=== PATIENT | female | born 1980 | race Caucasian/White ===

== ENCOUNTER 2021-01-24 11:00 | Outpatient (CLI) | payer OTHER | END 2021-01-24 23:59 | disposition home or self-care (01) | LOC: LAB.S 11:00 | PROVIDERS: ATTEND Physician Assistant Medical | DX: R30.0 Dysuria (principal) | CPT/HCPCS: 87086; 87181 ==

== ENCOUNTER 2021-02-02 15:10 | Outpatient (CLI) | payer OTHER ==
--- NOTE | 2021-02-03 14:34 | Mammography Report ---
BILATERAL DIGITAL SCREENING MAMMOGRAM 3D/2D WITH EXAGGERATED CC: 02/02/2021 CLINICAL: Family history of breast cancer. Baseline exam. No prior exams were available for comparison. The tissue of both breasts is heterogeneously dense. T his may lower the sensitivity of mammography. No significant masses, calcifications, or other findings are seen in either breast. IMPRESSION: NEGATIVE There is no mammographic evidence of malignancy. A 1 year screening mammogram is recommended. This exam was interpreted at Station ID: [id number]. NOTE: For mammograms, a report in lay terms will be sent to the patient. Approximately 15% of breast malignancies will not be visualized mammographically. In the management of a palpable breast mass, a negative mammogram must not discourage biopsy of a clinically suspicious lesion. Electronically Signed By: Homer Goldberg M.D. ddp/cici:02/02/2021 16:34:17 ACR BI-RADS Category 1: Negative 3341F PARENCHYMAL PATTERN: (D) - The breast(s) demonstrate(s) heterogeneously dense fibroglandular kayley arita. BI-RADS CATEGORY: (1) - 1 RECOMMENDATION: (ANNUAL) - Recommend routine annual screening mammography. [id number] 1 year screening LATERALITY: (B)
== END 2021-02-02 15:11 | disposition home or self-care (01) ==
LOC: DI.S 15:10
DX: Z12.31 Encounter for screening mammogram for malignant neoplasm of breast (principal); Z80.3 Family history of malignant neoplasm of breast

== ENCOUNTER 2021-09-18 10:21 | Emergency (ER) | payer OTHER ==
[2021-09-18] MEDS ORDERED: ONDANSETRON ODT 4 MG TABLET TL STA (10:40)
[2021-09-18] MEDS ORDERED: ACETAMINOPHEN 325 MG TABLET PO STA (10:42)
[2021-09-18 10:49] LABS: BASOPHILS # (AUTO) 0.1 10^3/uL (0.0-0.1); BASOPHILS % (AUTO) 0.4 %; EOSINOPHILS % (AUTO) 0.2 %; HGB - HEMOGLOBIN 13.1 g/dL (12.0-16.0); LYMPHOCYTES # (AUTO) 0.9 10^3/uL (1.5-3.5); LYMPHOCYTES % (AUTO) 7.5 %; MEAN CORPUSCULAR HEMOGLOBIN 31.5 pg (27.0-31.0); MEAN CORPUSCULAR HGB CONC 35.4 g/dL (32.0-36.0); MEAN CORPUSCULAR VOLUME 88.9 fL (81.0-99.0); MEAN PLATELET VOLUME 10.1 fL (7.9-10.8); MONOCYTES # (AUTO) 1.2 10^3/uL (0.0-1.0); MONOCYTES % (AUTO) 10.2 %; NEUTROPHILS # (AUTO) 9.5 10^3/uL (1.5-6.6); NEUTROPHILS % (AUTO) 81.1 %; PLT - PLATELET COUNT 225 10^3/uL (130-450); RED BLOOD COUNT 4.16 10^6/uL (4.20-5.40); RED CELL DISTRIBUTION WIDTH 13.7 % (12.0-15.0); WHITE BLOOD COUNT 11.7 x10^3/uL (4.8-10.8)
[2021-09-18 11:09] LABS: ALBUMIN/GLOBULIN RATIO 0.9 (1.0-2.2); ALKALINE PHOSPHATASE 40 IU/L (42-121); ALT ALANINE AMINOTRANSFERASE 24 IU/L (10-60); AST ASPARTATE AMINOTRANSFERASE 26 IU/L (10-42); BILIRUBIN,TOTAL 0.4 mg/dL (0.2-1.0); BUN - BLOOD UREA NITROGEN < 5 mg/dL (6-20); CALCIUM 8.9 mg/dL (8.5-10.3); CARBON DIOXIDE - CO2 26 mmol/L (21-32); CHLORIDE 92 mmol/L (101-111); CREATININE 0.8 mg/dL (0.4-1.0); GFR - MDRD 79 (>89); GLUCOSE 157 mg/dL (70-100); LIPASE 26 U/L (22-51); POTASSIUM 3.2 mmol/L (3.5-5.0); SODIUM 129 mmol/L (135-145); TOTAL PROTEIN 8.3 g/dL (6.7-8.2)
[2021-09-18] MEDS ORDERED: AZITHROMYCIN INJ 500 MG in SODIUM CHLORIDE 0.9% 250 ML IV STA (11:15)
[2021-09-18] MEDS ORDERED: SODIUM CHLORIDE 0.9% 1,000 ML IV STA (11:15)
[2021-09-18] MEDS ORDERED: cefTRIAXone 1 GM in SODIUM CHLORIDE 0.9% MINIBAG 100 ML IV STA (11:15)
--- NOTE | 2021-09-18 11:19 | ED Physician Documentation ---
PD HPI URI - Stated complaint Stated Complaint: FEVER/VOMITING - Chief complaint Chief Complaint: Fever - History obtained from History obtained from: Patient, Friend - History of Present Illness Timing - onset: How many days ago (5) Timing duration: Days (5) Timing details: Gradual onset, Still present Associated symptoms: Fever, Chills, Sweats, Nasal congestion, Rhinorrhea, Dry cough, NVD, Other (aches and chills) Contributing factors: No: Sick contact, Immunocompromised, Unimmunized Improves by: Rest Worsened by: Activity Similar symptoms before: Has not had sx before Recently seen: Not recently seen - Additional information Additional information: Previously well 41-year-old female has developed a cough congestion and fever with aches and pains. She is immunized against COVID and she has been boosted. She did not get Covid this year. She has taken a home test the day she developed symptoms. This was negative 5 days ago. She has continued to have cough and aches and fever. She has nausea and vomiting with this and has not been able to hold down tylenol. Review of Systems Constitutional: reports: Fever, Chills, Myalgias, Fatigue, Sweats Eyes: denies: Decreased vision, Photophobia Ears: denies: Ear pain Nose: reports: Rhinorrhea / runny nose, Congestion Throat: denies: Sore throat Cardiac: denies: Chest pain / pressure, Palpitations Respiratory: reports: Cough. denies: Dyspnea GI: reports: Nausea, Vomiting. denies: Constipation, Diarrhea : denies: Dysuria, Frequency Skin: denies: Rash Musculoskeletal: denies: Neck pain, Back pain, Extremity pain Neurologic: denies: Generalized weakness, Focal weakness, Numbness PD PAST MEDICAL HISTORY - Present Medications Home Medications: Ambulatory Orders Medication Instructions Recorded Confirmed Amox/Clav 875/125 [Augmentin] 1 each PO Q12H #20 tablet 09/18/21 Azithromycin [Zithromax] 250 mg PO DAILY #4 tablet 09/18/21 Ondansetron Odt [Zofran] 4 mg TL Q6H PRN #10 tablet 09/18/21 - Allergies Allergies/Adverse Reactions: Allergies Allergy/AdvReac Type Severity Reaction Status Date / Time cephalexin [From Keflex] Allergy Respiratory Verified 09/18/21 10:31 PD ED PE NORMAL - Vitals Vital signs reviewed: Yes (febrile and tachy) - General General: Alert and oriented X 3, No acute distress, Well developed/nourished - HEENT HEENT: Atraumatic, PERRL, EOMI, Pharynx benign, Dentition benign, Other (cerumen in left right is clear. ) - Neck Neck: Supple, no meningeal sign, No bony TTP - Cardiac Cardiac: RRR, No murmur - Respiratory Respiratory: No respiratory distress, Other (rhonhci and rales in the right base less the left. ) - Abdomen Abdomen: Soft, Non tender - Back Back: No CVA TTP, No spinal TTP - Derm Derm: Normal color, Warm and dry, No rash - Extremities Extremities: No deformity, No edema - Neuro Neuro: Alert and oriented X 3, grinder needle tip 2-12 intact, No motor deficit, No sensory deficit, Normal speech Eye Opening: Spontaneous Motor: Obeys Commands Verbal: Oriented GCS Score: 15 - Psych Psych: Normal mood, Normal affect Results - Vitals Vitals: Vital Signs - 24 hr 09/18/21 09/18/21 09/18/21 10:26 12:24 13:00 Temperature 39.4 C H 37.7 C 37.5 C Heart Rate 114 H 99 94 Respiratory 20 14 14 Rate Blood Pressure 126/80 114/67 103/66 O2 Saturation 98 96 97 Oxygen O2 Source Room air - Labs Labs: Laboratory Tests 09/18/21 09/18/21 09/18/21 10:33 10:33 11:22 WBC 11.7 H RBC 4.16 L Hgb 13.1 Hct 37.0 MCV 88.9 MCH 31.5 H MCHC 35.4 RDW 13.7 Plt Count 225 MPV 10.1 Neut # (Auto) 9.5 H Lymph # (Auto) 0.9 L Vilas # (Auto) 1.2 H Eos # (Auto) 0.0 Baso # (Auto) 0.1 Absolute Nucleated RBC 0.00 Nucleated RBC % 0.0 Sodium 129 L Potassium 3.2 L Chloride 92 L Carbon Dioxide 26 Anion Gap 11.0 BUN < 5 L Creatinine 0.8 Estimated GFR (MDRD) 79 L Glucose 157 H Lactic Acid Calcium 8.9 Total Bilirubin 0.4 AST 26 ALT 24 Alkaline Phosphatase 40 L Total Protein 8.3 H Albumin 4.0 Globulin 4.3 H Albumin/Globulin Ratio 0.9 L Lipase 26 Urine Color YELLOW Urine Clarity CLEAR Urine pH 6.5 Ur Specific [place] <=1.005 Urine Protein NEGATIVE Urine Glucose (UA) NEGATIVE Urine Ketones NEGATIVE Urine Occult Blood SMALL H Urine Nitrite NEGATIVE Urine Bilirubin NEGATIVE Urine Urobilinogen 1 (NORMAL) Ur Leukocyte Esterase NEGATIVE Urine RBC 0-5 Urine WBC 0-3 Ur Squamous Epith Cells FEW Squamous Urine Bacteria Rare Ur Microscopic Review INDICATED Urine Culture Comments NOT INDICATED Urine HCG, Qual NEGATIVE Nasal Adenovirus (PCR) Nasal B. parapertussis DNA (PCR) Nasal Coronavir 229E PCR Nasal Coronavir HKU1 PCR Nasal Coronavir NL63 PCR Nasal Coronavir OC43 PCR Nasal Enterovir/Rhinovir PCR Nasal Influenza B PCR Nasal Influenza A PCR Nasal Parainfluen 1 PCR Nasal Parainfluen 2 PCR Nasal Parainfluen 3 PCR Nasal Parainfluen 4 PCR Nasal RSV (PCR) Nasal B.pertussis DNA PCR Nasal C.pneumoniae (PCR) John Human Metapneumo PCR Nasal M.pneumoniae (PCR) Nasal SARS-CoV-2 (PCR) 09/18/21 09/18/21 11:22 11:32 WBC RBC Hgb Hct MCV MCH MCHC RDW Plt Count MPV Neut # (Auto) Lymph # (Auto) Vil[place] # (Auto) Eos # (Auto) Baso # (Auto) Absolute Nucleated RBC Nucleated RBC % Sodium Potassium Chloride Carbon Dioxide Anion Gap BUN Creatinine Estimated GFR (MDRD) Glucose Lactic Acid 1.5 Calcium Total Bilirubin AST ALT Alkaline Phosphatase Total Protein Albumin Globulin Albumin/Globulin Ratio Lipase Urine Color Urine Clarity Urine pH Ur Specific [place] Urine Protein Urine Glucose (UA) Urine Ketones Urine Occult Blood Urine Nitrite Urine Bilirubin Urine Urobilinogen Ur Leukocyte Esterase Urine RBC Urine WBC Ur Squamous Epith Cells Urine Bacteria Ur Microscopic Review Urine Culture Comments Urine HCG, Qual Nasal Adenovirus (PCR) NOT DETECTED Nasal B. parapertussis DNA (PCR) NOT DETECTED Nasal Coronavir 229E PCR NOT DETECTED Nasal Coronavir HKU1 PCR NOT DETECTED Nasal Coronavir NL63 PCR NOT DETECTED Nasal Coronavir OC43 PCR NOT DETECTED Nasal Enterovir/Rhinovir PCR NOT DETECTED Nasal Influenza B PCR NOT DETECTED Nasal Influenza A PCR NOT DETECTED Nasal Parainfluen 1 PCR NOT DETECTED Nasal Parainfluen 2 PCR NOT DETECTED Nasal Parainfluen 3 PCR NOT DETECTED Nasal Parainfluen 4 PCR NOT DETECTED Nasal RSV (PCR) NOT DETECTED Nasal B.pertussis DNA PCR NOT DETECTED Nasal C.pneumoniae (PCR) NOT DETECTED John Human Metapneumo PCR NOT DETECTED Nasal M.pneumoniae (PCR) NOT DETECTED Nasal SARS-CoV-2 (PCR) NOT DETECTED - Rads (name of study) chest Radiology: Prelim report reviewed (Impression: Slight increased right basilar coarsening, even accounting for mild rotated positioning. Atelectasis/dependent change versus developing pneumonia cannot be excluded.), EMP read indepedently, See rad report PD MEDICAL DECISION MAKING - ED course Complexity details: reviewed results, re-evaluated patient, considered dif ferential, d/w patient ED course: 41-year-old female with cough congestion and fever has a negative Covid test she has an infiltrate on her chest x-ray and she is treated for community-acquired pneumonia. She is administered Rocephin and azithromycin intravenously. Departure - Departure Disposition: 01 Home, Self Care Clinical Impression: Pneumonia Qualifiers: Pneumonia type: due to unspecified organism Laterality: right Lung location: lower lobe of lung Qualified Code(s): J18.9 - Pneumonia, unspecified organism Condition: Stable Instructions: ED Pneumonia Adult Follow-Up: JOHN Goodrich [Provider Group] Prescriptions: Amox/Clav 875/125 [Augmentin] 1 each PO Q12H #20 tablet Azithromycin [Zithromax] 250 mg PO DAILY #4 tablet Ondansetron Odt [Zofran] 4 mg TL Q6H PRN #10 tablet PRN Reason: Nausea / Vomiting Comments: Marli, today it looks like you have community-acquired pneumonia in your right lower lung. The expectation with this is daily improvement with the oral antibiotics and hydration. I have provided prescription for antibiotics that are E scribed to [facility] in [place]. In addition I have prescribed some Zofran for nausea in case this gets to be an issue again. Stay hydrated and slow down your work treat a fever with Tylenol and expect improvement day by day. If you have worsening we are here at 3 O'clock in the morning Discharge Date/Time: 09/18/21 13:32
--- NOTE | 2021-09-18 11:34 | XRAY Report ---
PROCEDURE: Chest 1 View X-Ray INDICATIONS: cough TECHNIQUE: One view of the chest was acquired. COMPARISON: None FINDINGS: Surgical changes and devices: None. Lungs and pleura: The patient is rotated, there is slight increased coarsening within the right base. Mediastinum: Mediastinal contours appear normal. Heart size is normal. Bones and chest wall: No suspicious bony lesions. Overlying soft tissues appear unremarkable. IMPRESSION: Slight increased right basilar coarsening, even accounting for mildly rotated positioning. Atelectasi s/dependent change versus developing pneumonia cannot be excluded. Reviewed by: Sydnie Camp MD on 09/18/2021 11:33 AM PDT Approved by: Sydnie Camp MD on 09/18/2021 11:33 AM PDT Station ID: [id number]
[2021-09-18 11:37] LABS: BILIRUBIN,URINE NEGATIVE (NEGATIVE); GLUCOSE, URINE (UA) NEGATIVE (NEGATIVE); KETONES,URINE (UA) NEGATIVE (NEGATIVE); LEUKOCYTE ESTERASE, URINE NEGATIVE (NEGATIVE); NITRITE,URINE NEGATIVE (NEGATIVE); OCCULT BLOOD,URINE SMALL (NEGATIVE); PH,URINE 6.5 PH (5.0-7.5); PROTEIN,URINE NEGATIVE (NEGATIVE); UROBILINOGEN,URINE 1 (NORMAL) E.U./dL (NORMAL)
[2021-09-18 11:38] LABS: CLARITY,URINE CLEAR (CLEAR)
[2021-09-18 11:39] LABS: HCG UR QUAL NEGATIVE
[2021-09-18 11:47] LABS: BACTERIA,URINE Rare /HPF (None Seen); RBC,URINE 0-5 /HPF (0-5); SQUAMOUS EPITHELIAL CELL,UR FEW Squamous (<= Few); WBC,URINE 0-3 /HPF (0-5)
[2021-09-18 12:53] LABS: B. PARAPERTUSSIS- RESP PCR PAN NOT DETECTED; B. PERTUSSIS- RESP PCR PANEL NOT DETECTED; C. PNEUMONIAE- RESP PCR PANEL NOT DETECTED; CORONAVIRUS 229E-RESP PCR NOT DETECTED; CORONAVIRUS HKU1-RESP PCR NOT DETECTED; CORONAVIRUS NL63-RESP PCR NOT DETECTED; CORONAVIRUS OC43-RESP PCR NOT DETECTED; HUMAN METAPNEUMOVIRUS NOT DETECTED; INFLUENZA A- RESP PCR PANEL NOT DETECTED; INFLUENZA B - RESP PCR PANEL NOT DETECTED; M. PNEUMONIAE- RESP PCR PANEL NOT DETECTED; PARAINFLUENZA VIRUS 1 NOT DETECTED; PARAINFLUENZA VIRUS 2 NOT DETECTED; PARAINFLUENZA VIRUS 3 NOT DETECTED; PARAINFLUENZA VIRUS 4 NOT DETECTED; RHINOVIRUS/ENTEROVIRUS NOT DETECTED; RSV- RESP PCR PANEL NOT DETECTED; SARS-CoV-2 -RESP PCR PANEL NOT DETECTED
[2021-09-18 13:13] VITALS: BP 103/66
== END 2021-09-18 13:32 | disposition home or self-care (01) ==
LOC: ED 10:21
DX: J18.9 Pneumonia, unspecified organism (principal); Z20.822 Contact with and (suspected) exposure to COVID-19
CPT/HCPCS: 0202U; 36415; 71045; 80053; 81001; 81025; 83605; 83690; 85025; 87040; 96365; 96367; 99284; A9270; Q0162; 81003; 87086